=== PATIENT | male | born 1955 | race Caucasian/White ===

== ENCOUNTER 2022-11-06 15:47 | Inpatient (IN) | payer MEDICARE, OTHER ==
[~2022-11-06] VITALS: Ht 170.2 cm; Wt 101.2 kg
--- NOTE | 2022-11-06 16:00 | NUR ---
BIB PA FROM [facility] FOR BILATERAL LEG SWELLING X 5 DAYS, MORE ON THE LEFT. PLACED IN BED, AAOX3, BREATHING UNLABORED SATURATING AT 98%RA, LEFT LOWER LEG SWELLING NOTED.
--- NOTE | 2022-11-06 16:50 | NUR ---
IMPROVEMENT ENGINEER AT BEDSIDE
--- NOTE | 2022-11-06 16:52 | NUR ---
DUPLEX U/S TECH AT BEDSIDE
--- NOTE | 2022-11-06 17:15 | NUR ---
MOVE SHEET SUBMITTED.
[2022-11-06 17:27] LABS: BASOPHILS % (AUTO) 0.5 % (0.0-2.0); EOSINOPHILS % (AUTO) 2.1 % (0.0-6.0); HEMATOCRIT 44 % (39-51); HEMOGLOBIN 14.8 g/dL (13.5-17.5); LYMPHOCYTES # (AUTO) 1.6 K/uL (0.8-4.8); LYMPHOCYTES % (AUTO) 23.2 % (20.0-44.0); MEAN CORPUSCULAR HGB CONC 34 g/dl (31.0-36.0); MEAN CORPUSCULAR VOLUME 91 fL (80-96); MONOCYTES # (AUTO) 0.6 K/uL (0.1-1.30); MONOCYTES % (AUTO) 9.1 % (2.0-12.0); NEUTROPHILS # (AUTO) 4.4 K/uL (1.8-8.9); NEUTROPHILS % (AUTO) 65.1 % (43.0-81.0); PLATELET COUNT (AUTO) 136 K/uL (150-450); RED BLOOD CELL COUNT(AUTO) 4.85 MIL/uL (4.5-6.0); WHITE BLOOD COUNT (AUTO) 6.7 K/uL (4.3-11.0)
--- NOTE | 2022-11-06 17:36 | NUR ---
[facility] CALLED [employer]IO TECHNICIAN PAGED.
[2022-11-06] MEDS ORDERED: ACET-868 PO (18:00)
[2022-11-06] MEDS ORDERED: ATOR40TA PO (18:00)
[2022-11-06] MEDS ORDERED: ASCO-352 PO (18:00)
[2022-11-06] MEDS ORDERED: MULT-447 PO (18:00)
[2022-11-06] MEDS ORDERED: QUET25TA PO (18:00)
[2022-11-06] MEDS ORDERED: BISA10SU11 RC (18:00)
[2022-11-06] MEDS ORDERED: FAMO20TA8 PO (18:00)
[2022-11-06] MEDS ORDERED: SPIR25TA PO (18:00)
[2022-11-06] MEDS ORDERED: DIGO-30 PO (18:00)
[2022-11-06] MEDS ORDERED: RISP0.2515 PO (18:00)
[2022-11-06] MEDS ORDERED: METF-440 PO (18:00)
[2022-11-06] MEDS ORDERED: MAGN400O6 PO (18:00)
[2022-11-06] MEDS ORDERED: NA P133E RC (18:00)
[2022-11-06] MEDS ORDERED: METO25TA3 PO (18:00)
[2022-11-06] MEDS ORDERED: NIFE30TA2 PO (18:00)
[2022-11-06] MEDS ORDERED: INSU100V3 SQ (18:00)
[2022-11-06] MEDS ORDERED: RIVA10TA PO (18:00)
[2022-11-06] MEDS ORDERED: ESCI10TA PO (18:00)
[2022-11-06 18:17] LABS: ALANINE AMINOTRANSFERASE 16 U/L (12-78); ALBUMIN 3.6 g/dL (3.4-5.0); ALKALINE PHOSPHATASE 70 U/L (46-116); ASPARTATE AMINOTRANSFERASE 14 U/L (15-37); BILIRUBIN,DIRECT 0.2 mg/dL (0.0-0.2); CALCIUM, SERUM 9.5 mg/dL (8.5-10.1); CARBON DIOXIDE 29 mmol/L (21-32); CHLORIDE 102 mmol/L (98-107); CREATININE 1.4 mg/dL (0.6-1.3); GLUCOSE 116 mg/dL (74-106); SODIUM SERUM 138 mmol/L (136-145); UREA NITROGEN, BLOOD 24 mg/dL (7-18)
--- NOTE | 2022-11-06 18:55 | NUR ---
SWAB FOR COVID19 SENT TO LAB
[2022-11-06 20:00] VITALS: BP 144/89
--- NOTE | 2022-11-06 20:12 | NUR ---
REPORT GIVEN TO ROSALBA CHAVEZ ROOM 311-1 FOR PRISCILA
--- NOTE | 2022-11-06 21:57 | NUR ---
RN NOTE; RECEIVED PT FROM ER IN RM 311-2 WITH CATRACHITA ASSITED BY TWO PERSONNEL,AAOX2 WITH CONFUSION,TRISTAN WELL ON RM AIR SATTING 98%,NO SIGN SOB/DISTRESS NOTED,NO COMPLAIN OF PAIN/DISCOMFORT AT THIS TIME,IV ACCESS ON LAC 20G INTACT NO BLEEDING NOTED,PT WAS ORIENT THE RM VERBALLY UNDERSTANDING,SAFETY MEASURE IN PLACE,CALL LIGHT WITHIN REACH,WILL CONTINUE TO MONITOR.
[2022-11-06] MEDS ORDERED: BISACODYL SUPP (10 MG) 10 MG/SUPP.RECT SUPP.RECT RC PRN (22:00)
[2022-11-06] MEDS ORDERED: NA PHOS,M-B/NA PHOS,DI-BA 1 EA ENEMA RC PRN (22:00)
[2022-11-06] MEDS ORDERED: HYDROCODONE/APAP 5/325MG TABLET PO PRN (22:00)
[2022-11-06] MEDS ORDERED: Z GUARD REMEDY 4 OZ OINT TP PRN (22:00)
[2022-11-06] MEDS ORDERED: ONDANSETRON HCL/PF 4 MG/2 ML VIAL IVP PRN (22:00)
[2022-11-06] MEDS ORDERED: DEXTROSE 50%-WATER 50 ML DISP.SYRIN IV PRN (22:00)
[2022-11-06] MEDS ORDERED: ACETAMINOPHEN 325 MG TABLET PO PRN (22:00)
[2022-11-06] MEDS: ATORVASTATIN 40 MG TABLET PO SCH (22:47)
[2022-11-06] MEDS: INSULIN REGULAR, HUMAN 100 UNIT/ML 3 ML VIAL SQ PRN (22:56)
[2022-11-06] MEDS: BLOOD SUGAR DIAGNOSTIC 1 EACH STRIP IN SCH (22:57)
[2022-11-07] VITALS: BP 135/83
[2022-11-07 06:29] LABS: CALCIUM, SERUM 9.5 mg/dL (8.5-10.1); CREATININE 1.2 mg/dL (0.6-1.3); MAGNESIUM 1.9 mg/dL (1.8-2.4); PHOSPHORUS 3.5 mg/dL (2.5-4.9); POTASSIUM 3.9 mmol/L (3.5-5.1)
--- NOTE | 2022-11-07 06:31 | NUR ---
RN CLOSING NOTE;328 PATIENT IN BED AAOX1-2 WITH CONFUSION,TRISTAN WELL ON RM AIR SATTING 98%,NO SIGN SOB/DISTRESS NOTED,NO COMPLAIN OF PAIN/DISCOMFORT DURING SHIFT,DUE MEDS GIVEN ORDER,ALL NEEDS ATTENDED,,IV SITE ON RAC 20G,PATENT AND INTACT,SAFETY MEASURE IN PLACE,CALL LIGHT WITHIN REACH,WILL ENDORSED TO NEXT SHIFT.
[2022-11-07 06:35] LABS: BASOPHILS % (AUTO) 0.5 % (0.0-2.0); EOSINOPHILS % (AUTO) 2.4 % (0.0-6.0); HEMATOCRIT 44 % (39-51); HEMOGLOBIN 14.6 g/dL (13.5-17.5); LYMPHOCYTES # (AUTO) 1.9 K/uL (0.8-4.8); LYMPHOCYTES % (AUTO) 23.3 % (20.0-44.0); MEAN CORPUSCULAR HGB CONC 33 g/dl (31.0-36.0); MEAN CORPUSCULAR VOLUME 91 fL (80-96); MONOCYTES # (AUTO) 0.7 K/uL (0.1-1.30); MONOCYTES % (AUTO) 8.6 % (2.0-12.0); NEUTROPHILS # (AUTO) 5.3 K/uL (1.8-8.9); NEUTROPHILS % (AUTO) 65.2 % (43.0-81.0); PLATELET COUNT (AUTO) 138 K/uL (150-450); WHITE BLOOD COUNT (AUTO) 8.1 K/uL (4.3-11.0)
[2022-11-07] MEDS: INSULIN REGULAR, HUMAN 100 UNIT/ML 3 ML VIAL SQ PRN ×4 (06:41→21:58)
[2022-11-07] MEDS: BLOOD SUGAR DIAGNOSTIC 1 EACH STRIP IN SCH ×4 (06:42→21:59)
--- NOTE | 2022-11-07 07:25 | NUR ---
MS RN OPENING NOTES PT RECEIVED IN BED AWAKE, A/O X2. CONFUSED AND FORGETFUL. ABLE TO MAKE NEEDS KNOWN, DENIES PAIN OR ANY DISCOMFORTS AT THIS TIME. ON ROOM AIR, TOLERATING WELL, BREATHING EVEN AND UNLABORED. IV ACCESS ON RAC #20G INTACT, PATENT AND SL. SAFETY PRECAUTIONS IN PLACE: BED IN LOWEST LOCKED POSITION, SIDE RAILS UP X3, BED ALARM ON, CALL LIGHT AND TRAY TABLE WITHIN REACH OF PT. WILL CONTINUE TO MONITOR PT ACCORDINGLY.
[2022-11-07] MEDS: PANTOPRAZOLE 40 MG TABLET.DR PO SCH (07:55)
[2022-11-07 08:00] VITALS: BP 146/77
[2022-11-07] MEDS: SPIRONOLACTONE 25 MG TABLET PO SCH (08:32)
[2022-11-07] MEDS: risperiDONE 1 MG TABLET PO SCH ×2 (08:33→16:45)
[2022-11-07] MEDS: MULTIVIT W/MINERALS 1 TAB TABLET PO SCH (08:34)
[2022-11-07] MEDS: QUETIAPINE FUMARATE 25 MG TABLET PO SCH ×2 (08:34→16:45)
[2022-11-07] MEDS: ASCORBIC ACID 500 MG TABLET PO SCH (08:35)
[2022-11-07] MEDS: ESCITALOPRAM OXALATE (10 MG) 10 MG TABLET PO SCH (08:36)
[2022-11-07] MEDS: DIGOXIN 0.125 MG TABLET PO SCH (08:39)
[2022-11-07] MEDS: METOPROLOL SUCCINATE 25 MG TAB.SR.24H PO SCH (08:39)
[2022-11-07] MEDS: NIFEdipine XL (30MG) 30 MG TAB PO SCH (08:39)
[2022-11-07] MEDS: ENOXAPARIN SODIUM 100 MG/ML DISP.SYRIN SQ SCH ×2 (08:45→21:11)
[2022-11-07 16:00] VITALS: BP 123/85
--- NOTE | 2022-11-07 18:41 | NUR ---
MS RN CLOSING NOTES PT IN BED AWAKE AND RESTING. A/O X2. ABLE TO MAKE NEEDS KNOWN WITH CONFUSION AND FORGETFULNESS. FREQUENT RE-ORIENTATION AND REDIRECTION GIVEN. PT REFUSED TO CHANGE TO HOSPITAL GOWN. ON ROOM AIR, TOLERATING WELL, BREATHING EVEN AND UNLABORED, NO SOB NOTED DURING SHIFT. IV ACCESS ON RAC #20G INTACT, PATENT AND SL. ALL NEEDS AND CARE PROVIDED. SAFETY PRECAUTIONS IN PLACE: BED IN LOWEST LOCKED POSITION, SIDE RAILS UP X2, BED ALARM ON, CALL LIGHT AND TRAY TABLE WITHIN REACH OF PT. WILL ENDORSE PRISCILA TO BUSINESS AND FINANCIAL COUNSEL NURSE.
--- NOTE | 2022-11-07 19:13 | NUR ---
RN OPENING NOTE; RECEIVED PATIENT IN BED AAOX1-2 WITH CONFUSION,TRISTAN WELL ON RM AIR SATTING 97.2%,NO SIGN SOB/DISTRESS NOTED,NO COMPLAIN OF PAIN/DISCOMFORT AT THIS TIME,IV SITE ON LAC 20G,PATENT AND INTACT,SAFETY MEASURE IN PLACE,CALL LIGHT WITHIN REACH,WILL CONTINUE TO MONITOR.
[2022-11-07 20:00] VITALS: BP 137/74
[2022-11-07] MEDS: ATORVASTATIN 40 MG TABLET PO SCH (21:10)
--- NOTE | 2022-11-07 22:30 | NUR ---
RN opening notes Received Pt from KATHY Brock. Pt is resting in bed comfortably. Pt is alert and orientedX2. On room air. No SOB. No S/S of distress noted. VS is stable. IV site at RAC# 20 is clean, intact and SL. Safety precaution is maintained. Bed at low position, brakes locked, hob elevated, side rails upX3, bed alarm is on, and call light is within reach. will continue to monitor.
[2022-11-08 05:52] LABS: BASOPHILS % (AUTO) 0.7 % (0.0-2.0); EOSINOPHILS % (AUTO) 3.4 % (0.0-6.0); HEMATOCRIT 43 % (39-51); HEMOGLOBIN 14.3 g/dL (13.5-17.5); LYMPHOCYTES # (AUTO) 2.1 K/uL (0.8-4.8); MEAN CORPUSCULAR HGB CONC 33 g/dl (31.0-36.0); MEAN CORPUSCULAR VOLUME 92 fL (80-96); MONOCYTES # (AUTO) 0.6 K/uL (0.1-1.30); MONOCYTES % (AUTO) 8.3 % (2.0-12.0); NEUTROPHILS # (AUTO) 3.7 K/uL (1.8-8.9); NEUTROPHILS % (AUTO) 55.6 % (43.0-81.0); PLATELET COUNT (AUTO) 129 K/uL (150-450); RED BLOOD CELL COUNT(AUTO) 4.62 MIL/uL (4.5-6.0); WHITE BLOOD COUNT (AUTO) 6.7 K/uL (4.3-11.0)
[2022-11-08 06:07] LABS: CALCIUM, SERUM 9.1 mg/dL (8.5-10.1); CREATININE 1.2 mg/dL (0.6-1.3); MAGNESIUM 2.3 mg/dL (1.8-2.4); PHOSPHORUS 3.8 mg/dL (2.5-4.9); POTASSIUM 3.8 mmol/L (3.5-5.1)
[2022-11-08] MEDS: BLOOD SUGAR DIAGNOSTIC 1 EACH STRIP IN SCH ×4 (06:42→21:38)
--- NOTE | 2022-11-08 06:45 | NUR ---
MS RN CLOSING NOTES PATIENT RESTING IN BED COMFORTABLY. PT IS ALERT AND ORIENTED X 2. ON ROOM AIR, NO S/S OF RESPIRATORY DISTRESS. V/S STABLE. IV SITE AT RAC #20G, INTACT AND PATENT ON SL. KEPT CLEAN, DRY AND COMFORTABLE. SAFETY MEASURES MAINTAINED WITH BED ON LOWEST POSITION AND LOCK. BED ALARM ON. CALL LIGHT AND TABLE WITHIN REACH. SIDE RAILS UP X2. WILL ENDORSE TO THE NEXT SHIFT FOR THE CONTINUITY OF CARE.
[2022-11-08] MEDS: INSULIN REGULAR, HUMAN 100 UNIT/ML 3 ML VIAL SQ PRN ×4 (06:47→21:45)
--- NOTE | 2022-11-08 07:44 | NUR ---
RN OPENING NOTES: RECEIVED PT ASLEEP, EASILY ROUSED, A/OX1-2 WITH PERIODS OF CONFUSION. ON ROOM AIR, TRISTAN WELL, NO S/S OF SOB, V/S STABLE. IV SITE AT RAC #20G, SL, INTACT AND PATENT. DENIES PAIN AT THIS TIME. SAFETY MEASURES MAINTAINED WITH BED ON LOWEST POSITION AND LOCK. BED ALARM ON. CALL LIGHT AND TABLE WITHIN REACH. SIDE RAILS UP X2; WILL CONT WITH PLAN OF CARE DURING SHIFT.
[2022-11-08 08:00] VITALS: BP 132/86
[2022-11-08] MEDS: DIGOXIN 0.125 MG TABLET PO SCH (08:23)
[2022-11-08] MEDS: risperiDONE 1 MG TABLET PO SCH ×2 (08:23→16:05)
[2022-11-08] MEDS: ASCORBIC ACID 500 MG TABLET PO SCH (08:23)
[2022-11-08] MEDS: MULTIVIT W/MINERALS 1 TAB TABLET PO SCH (08:23)
[2022-11-08] MEDS: ESCITALOPRAM OXALATE (10 MG) 10 MG TABLET PO SCH (08:23)
[2022-11-08] MEDS: NIFEdipine XL (30MG) 30 MG TAB PO SCH (08:24)
[2022-11-08] MEDS: PANTOPRAZOLE 40 MG TABLET.DR PO SCH (08:24)
[2022-11-08] MEDS: QUETIAPINE FUMARATE 25 MG TABLET PO SCH ×2 (08:24→16:04)
[2022-11-08] MEDS: SPIRONOLACTONE 25 MG TABLET PO SCH (08:24)
[2022-11-08] MEDS: METOPROLOL SUCCINATE 25 MG TAB.SR.24H PO SCH (08:24)
[2022-11-08] MEDS: ENOXAPARIN SODIUM 100 MG/ML DISP.SYRIN SQ SCH ×2 (08:26→21:34)
[2022-11-08 16:00] VITALS: BP 126/72
--- NOTE | 2022-11-08 18:14 | NUR ---
RN CLOSING NOTES: PT IS ASLEEP, EASILY ROUSED, A/OX1-2 WITH PERIODS OF CONFUSION. ON ROOM AIR, TOLERATING WELL, NO S/S OF SOB, V/S STABLE. IV SITE AT RAC #20G, SL, INTACT AND PATENT. DENIES PAIN AT THIS TIME. MEDS, GIVEN, NEEDS ATTENDED. KEPT PT CLEAN, DRY AND COMFORTABLE. SAFETY MEASURES MAINTAINED WITH BED ON LOWEST POSITION AND LOCK. BED ALARM ON, CALL LIGHT AND TABLE WITHIN REACH, SIDE RAILS UP X2; WILL ENDORSE TO PM SHIFT.
--- NOTE | 2022-11-08 19:29 | NUR ---
MS JOSE INITIAL NOTES Received report from am nurse and checked the patient he's on bed lying awake and alert oriented to his name and place . Denies any pain or any discomfort at this time. Able to ambulate without help.. Re -oriented where he at and how to used the call light system . kept him warm and comfortable at all times. Bed in low and lock in position with side rails x2 up. will continue monitoring.
[2022-11-08 20:00] VITALS: BP 113/72
[2022-11-08] MEDS: ATORVASTATIN 40 MG TABLET PO SCH (21:33)
--- NOTE | 2022-11-08 22:08 | NUR ---
MS JOSE NOTES BLOOD SUGAR CHECKED DONE 155, INSULIN 2 UNITS GIVEN NAGI SQ ORDERED. ROUTINE MEDS GIVEN AND SNACKS ALSO SERVED. PT TOLERATED WELL, KEPT HIM WARM AND COMFORTABLE AT ALL TIMES. WILL CONTINUE MONITORING. PLACE CALL LIGHT AT REACH.
[2022-11-09] MEDS: BLOOD SUGAR DIAGNOSTIC 1 EACH STRIP IN SCH ×2 (06:04→11:42)
[2022-11-09 06:18] LABS: BASOPHILS % (AUTO) 0.5 % (0.0-2.0); EOSINOPHILS % (AUTO) 3.7 % (0.0-6.0); HEMATOCRIT 43 % (39-51); HEMOGLOBIN 14.1 g/dL (13.5-17.5); LYMPHOCYTES # (AUTO) 2.3 K/uL (0.8-4.8); LYMPHOCYTES % (AUTO) 31.2 % (20.0-44.0); MEAN CORPUSCULAR HGB CONC 33 g/dl (31.0-36.0); MEAN CORPUSCULAR VOLUME 92 fL (80-96); MONOCYTES # (AUTO) 0.6 K/uL (0.1-1.30); MONOCYTES % (AUTO) 7.5 % (2.0-12.0); NEUTROPHILS # (AUTO) 4.2 K/uL (1.8-8.9); NEUTROPHILS % (AUTO) 57.1 % (43.0-81.0); PLATELET COUNT (AUTO) 135 K/uL (150-450); RED BLOOD CELL COUNT(AUTO) 4.63 MIL/uL (4.5-6.0); WHITE BLOOD COUNT (AUTO) 7.3 K/uL (4.3-11.0)
[2022-11-09 07:00] VITALS: BP 143/98
--- NOTE | 2022-11-09 07:18 | NUR ---
ms tile decorator closing notes pt back to rest after morning care done. Stable throughout the night and slept well. all due meds given and all needs met. blood sugar 109, no coverages given as ordered. no signs of hypo glycemia noted . Bed in low and lock in position with side rails x2 up . Endorse to am nurse for continuity of care. place call light at reach.
--- NOTE | 2022-11-09 07:31 | NUR ---
MS RN OPENING NOTE PT AWAKE AND RESTING IN BED. A/OX2-3 AND ABLE TO MAKE NEEDS KNOWN. ON ROOM AIR WITH NO SIGNS OF RESPIRATORY DISTRESS NOTED. NO COMPLAINTS OF CARDIAC DISTRESS. IV ACCESS TO RIGHT AC#20 SL. PATENT AND INTACT. SAFETY PRECAUTIONS IN USE WITH BED IN LOWEST LOCKED POSITION, SIDE RAILS UP X2, TRAY AND CALL LIGHT WITHIN REACH. ALL NEEDS MET AT THIS TIME. WILL CONTINUE TO MONITOR.
[2022-11-09 07:38] LABS: CALCIUM, SERUM 9.3 mg/dL (8.5-10.1); CREATININE 1.1 mg/dL (0.6-1.3); MAGNESIUM 2.2 mg/dL (1.8-2.4); POTASSIUM 4.1 mmol/L (3.5-5.1)
[2022-11-09] MEDS: MULTIVIT W/MINERALS 1 TAB TABLET PO SCH (08:07)
[2022-11-09] MEDS: ESCITALOPRAM OXALATE (10 MG) 10 MG TABLET PO SCH (08:07)
[2022-11-09] MEDS: ASCORBIC ACID 500 MG TABLET PO SCH (08:07)
[2022-11-09] MEDS: ENOXAPARIN SODIUM 100 MG/ML DISP.SYRIN SQ SCH (08:07)
[2022-11-09] MEDS: PANTOPRAZOLE 40 MG TABLET.DR PO SCH (08:08)
[2022-11-09] MEDS: risperiDONE 1 MG TABLET PO SCH (08:08)
[2022-11-09] MEDS: QUETIAPINE FUMARATE 25 MG TABLET PO SCH (08:08)
[2022-11-09] MEDS: NIFEdipine XL (30MG) 30 MG TAB PO SCH (08:09)
[2022-11-09] MEDS: SPIRONOLACTONE 25 MG TABLET PO SCH (08:09)
[2022-11-09] MEDS: DIGOXIN 0.125 MG TABLET PO SCH (08:13)
[2022-11-09 08:14] VITALS: BP 143/98
[2022-11-09] MEDS: METOPROLOL SUCCINATE 25 MG TAB.SR.24H PO SCH (08:14)
[2022-11-09] MEDS: INSULIN REGULAR, HUMAN 100 UNIT/ML 3 ML VIAL SQ PRN (11:46)
[2022-11-09] MEDS ORDERED: ENOXAPARIN SODIUM 100 MG/ML DISP.SYRIN SQ SCH (21:00)
== END 2022-11-09 13:40 | DRG 299 ==
LOC: ER 15:49 → TELE 21:31 → MED 11-07 06:59
PROVIDERS: ADMIT Nurse Practitioner Family; ATTEND Nurse Practitioner Acute Care
DX: I82.412 Acute embolism and thrombosis of left femoral vein (principal); G93.41 Metabolic encephalopathy; N17.0 Acute kidney failure with tubular necrosis; D68.59 Other primary thrombophilia; I82.432 Acute embolism and thrombosis of left popliteal vein; E11.9 Type 2 diabetes mellitus without complications; Z20.822 Contact with and (suspected) exposure to COVID-19; J44.9 Chronic obstructive pulmonary disease, unspecified; Z79.01 Long term (current) use of anticoagulants; F25.9 Schizoaffective disorder, unspecified; I11.0 Hypertensive heart disease with heart failure; I50.9 Heart failure, unspecified; R13.10 Dysphagia, unspecified; M62.50 Muscle wasting and atrophy, not elsewhere classified, unspecified site; Z88.8 Allergy status to other drugs, medicaments and biological substances; Z91.041 Radiographic dye allergy status; Z79.84 Long term (current) use of oral hypoglycemic drugs; Z79.4 Long term (current) use of insulin; Z79.899 Other long term (current) drug therapy; E78.5 Hyperlipidemia, unspecified; I48.91 Unspecified atrial fibrillation
CPT/HCPCS: 36415; 71045-TC; 80048-TC; 80076-TC; 82962-TC; 83735-TC; 83880; 84100-TC; 84484-TC; 85025-TC; 85730-TC; 87081-TC; 93970-TC; C9803; G0378; J1650; J1815

== ENCOUNTER 2023-06-06 16:05 | Inpatient (IN) | payer MEDICARE, OTHER ==
[~2023-06-06] VITALS: Ht 182.9 cm; Wt 95.3 kg
[~2023-06-06 16:05] MED LIST: ACET-868 PO; ASCO-352 PO; ATOR40TA PO; BISA10SU11 RC; DIGO-30 PO; ESCI10TA PO; FAMO20TA8 PO; INSU100V3 SQ; MAGN400O6 PO; METF-440 PO; METO25TA3 PO; MULT-447 PO; NA P133E RC; NIFE30TA2 PO; QUET25TA PO; RISP0.2515 PO; RIVA10TA PO; SPIR25TA PO
[2023-06-06] MEDS ORDERED: ONDA4TAB5 PO (17:16)
[2023-06-06] MEDS ORDERED: PETR113O TP (17:16)
[2023-06-06 17:29] LABS: BASOPHILS # (AUTO) 0.1 K/uL (0.0-0.2); BASOPHILS % (AUTO) 1.4 % (0.0-2.0); EOSINOPHILS # (AUTO) 0.3 K/uL (0.0-0.7); EOSINOPHILS % (AUTO) 4.1 % (0.0-6.0); HEMATOCRIT 45 % (39-51); HEMOGLOBIN 15.2 g/dL (13.5-17.5); LYMPHOCYTES # (AUTO) 1.7 K/uL (0.8-4.8); LYMPHOCYTES % (AUTO) 20.7 % (20.0-44.0); MEAN CORPUSCULAR HEMOGLOBIN 31 PG (26.0-33.0); MEAN CORPUSCULAR HGB CONC 34 g/dl (31.0-36.0); MEAN CORPUSCULAR VOLUME 93 fL (80-96); MONOCYTES # (AUTO) 0.5 K/uL (0.1-1.30); MONOCYTES % (AUTO) 5.7 % (2.0-12.0); NEUTROPHILS # (AUTO) 5.5 K/uL (1.8-8.9); NEUTROPHILS % (AUTO) 68.1 % (43.0-81.0); PLATELET COUNT (AUTO) 144 K/uL (150-450); RED BLOOD CELL COUNT(AUTO) 4.85 MIL/uL (4.5-6.0); RED CELL DISTRIBUTION WIDTH 14.5 % (11.5-15.0); WHITE BLOOD COUNT (AUTO) 8.1 K/uL (4.3-11.0)
[2023-06-06 17:38] LABS: CALCIUM, SERUM 9.5 mg/dL (8.5-10.1); CARBON DIOXIDE 24 mmol/L (21-32); CHLORIDE 106 mmol/L (98-107); CREATININE 1.1 mg/dL (0.6-1.3); GLUCOSE 156 mg/dL (74-106); POTASSIUM 4.1 mmol/L (3.5-5.1); SODIUM SERUM 142 mmol/L (136-145); UREA NITROGEN, BLOOD 24 mg/dL (7-18)
[2023-06-06 17:45] LABS: ALANINE AMINOTRANSFERASE 16 U/L (12-78); ALBUMIN 3.8 g/dL (3.4-5.0); ALKALINE PHOSPHATASE 72 U/L (46-116); ASPARTATE AMINOTRANSFERASE 5 U/L (15-37); BILIRUBIN,DIRECT 0.2 mg/dL (0.0-0.2); BILIRUBIN,TOTAL 0.9 mg/dL (0.2-1.0); LIPASE 111 U/L (73-393); MAGNESIUM 1.7 mg/dL (1.8-2.4); TOTAL PROTEIN, SERUM 7.3 g/dL (6.4-8.2)
[2023-06-06] MEDS ORDERED: BISACODYL SUPP (10 MG) 10 MG/SUPP.RECT SUPP.RECT RC PRN (18:30)
[2023-06-06] MEDS ORDERED: MAG HYDROX/AL HYDROX/SIMETH 30 ML UDC PO PRN (18:30)
[2023-06-06] MEDS ORDERED: NA PHOS,M-B/NA PHOS,DI-BA 1 EA ENEMA RC PRN (18:30)
[2023-06-06] MEDS ORDERED: ACETAMINOPHEN 325 MG TABLET PO PRN (18:30)
[2023-06-06] MEDS ORDERED: ONDANSETRON HCL/PF 4 MG/2 ML VIAL IVP PRN (18:30)
[2023-06-06] MEDS ORDERED: Z GUARD REMEDY 4 OZ OINT TP PRN (18:30)
[2023-06-06] MEDS ORDERED: DEXTROSE 50%-WATER 50 ML DISP.SYRIN IV PRN (18:30)
[2023-06-06] MEDS ORDERED: MAGNESIUM HYDROXIDE 30 ML UDC PO PRN (18:30)
[2023-06-06 18:56] LABS: APPEARANCE,URINE SLIGHTLY CLOUDY (CLEAR); BILIRUBIN,URINE NEGATIVE (NEGATIVE); BLOOD, URINE NEGATIVE Ery/uL (NEGATIVE); COLOR,URINE YELLOW (YELLOW); KETONES,URINE NEGATIVE (NEGATIVE); LEUKOCYTE ESTERASE ,URINE NEGATIVE (NEGATIVE); NITRITE, URINE NEGATIVE (NEGATIVE); PH,URINE 6.5 (5.0-8.0); PROTEIN,URINE NEGATIVE (NEGATIVE); UGLUCOSE NEGATIVE (NEGATIVE)
[2023-06-06 19:10] LABS: ADD URINE CULTURE NO; BACTERIA,URINE None seen /HPF (None Seen); RBC,URINE NONE SEEN /HPF (0-2); WBC,URINE NONE SEEN /HPF (0-3)
[2023-06-06 19:19] VITALS: O2SAT 97
[2023-06-06 20:30] VITALS: BP 152/91; TEMP 97.4; O2SAT 94
[2023-06-07] MEDS: BLOOD SUGAR DIAGNOSTIC 1 EACH STRIP VI SCH ×5 (00:16→22:04)
[2023-06-07] MEDS: IV NS 0.9% 1,000 ML IV PRN ×2 (03:52→16:08)
[2023-06-07 07:00] VITALS: BP 156/99; TEMP 97.8; O2SAT 97
[2023-06-07] MEDS: *INSULIN REGULAR(HUMULIN R)HUM 100 UNIT/ML VIAL SQ PRN ×2 (07:12→22:12)
[2023-06-07] MEDS ORDERED: CLONIDINE HCL 0.1 MG TABLET PO PRN (07:30)
[2023-06-07 07:41] LABS: BASOPHILS % (AUTO) 0.5 % (0.0-2.0); EOSINOPHILS # (AUTO) 0.3 K/uL (0.0-0.7); EOSINOPHILS % (AUTO) 3.3 % (0.0-6.0); HEMATOCRIT 47 % (39-51); HEMOGLOBIN 15.7 g/dL (13.5-17.5); LYMPHOCYTES # (AUTO) 1.9 K/uL (0.8-4.8); LYMPHOCYTES % (AUTO) 21.5 % (20.0-44.0); MEAN CORPUSCULAR HEMOGLOBIN 31 PG (26.0-33.0); MEAN CORPUSCULAR HGB CONC 34 g/dl (31.0-36.0); MEAN CORPUSCULAR VOLUME 93 fL (80-96); MONOCYTES # (AUTO) 0.6 K/uL (0.1-1.30); MONOCYTES % (AUTO) 6.1 % (2.0-12.0); NEUTROPHILS # (AUTO) 6.2 K/uL (1.8-8.9); NEUTROPHILS % (AUTO) 68.6 % (43.0-81.0); PLATELET COUNT (AUTO) 134 K/uL (150-450); RED BLOOD CELL COUNT(AUTO) 5.02 MIL/uL (4.5-6.0); RED CELL DISTRIBUTION WIDTH 14.9 % (11.5-15.0)
[2023-06-07] MEDS: FAMOTIDINE (20 MG) 20 MG TABLET PO SCH (07:48)
[2023-06-07 08:01] LABS: CALCIUM, SERUM 9.4 mg/dL (8.5-10.1); MAGNESIUM 1.9 mg/dL (1.8-2.4); PHOSPHORUS 2.9 mg/dL (2.5-4.9); POTASSIUM 3.6 mmol/L (3.5-5.1)
[2023-06-07] MEDS ORDERED: DIGOXIN 0.125 MG TABLET PO SCH (09:00)
[2023-06-07] MEDS: METOPROLOL SUCCINATE 25 MG TAB.SR.24H PO SCH (09:17)
[2023-06-07] MEDS: risperiDONE 1 MG TABLET PO SCH ×2 (09:17→16:10)
[2023-06-07] MEDS: NIFEdipine XL (30MG) 30 MG TAB PO SCH (09:18)
[2023-06-07] MEDS: QUETIAPINE FUMARATE 25 MG TABLET PO SCH ×2 (09:18→16:10)
[2023-06-07] MEDS: ESCITALOPRAM OXALATE (10 MG) 10 MG TABLET PO SCH (09:18)
[2023-06-07] MEDS: RIVAROXABAN 10 MG TABLET PO SCH (10:01)
[2023-06-07] MEDS: DIGOXIN 0.125 MG TABLET PO SCH (12:33)
[2023-06-07 16:00] VITALS: BP 148/102; TEMP 98; O2SAT 97
[2023-06-07] MEDS: INSULIN REGULAR, HUMAN 100 UNIT/ML 3 ML VIAL SQ PRN (17:36)
[2023-06-07 20:00] VITALS: BP 110/72; TEMP 97.1; O2SAT 95
[2023-06-07 21:14] VITALS: BP 110/72; TEMP 97.1; O2SAT 94
[2023-06-08 05:54] LABS: BASOPHILS # (AUTO) 0.1 K/uL (0.0-0.2); BASOPHILS % (AUTO) 0.6 % (0.0-2.0); EOSINOPHILS # (AUTO) 0.2 K/uL (0.0-0.7); EOSINOPHILS % (AUTO) 2.8 % (0.0-6.0); HEMATOCRIT 44 % (39-51); HEMOGLOBIN 15.2 g/dL (13.5-17.5); LYMPHOCYTES % (AUTO) 25.1 % (20.0-44.0); MEAN CORPUSCULAR HEMOGLOBIN 32 PG (26.0-33.0); MEAN CORPUSCULAR HGB CONC 34 g/dl (31.0-36.0); MEAN CORPUSCULAR VOLUME 92 fL (80-96); MONOCYTES # (AUTO) 0.6 K/uL (0.1-1.30); MONOCYTES % (AUTO) 7.9 % (2.0-12.0); NEUTROPHILS # (AUTO) 5.1 K/uL (1.8-8.9); NEUTROPHILS % (AUTO) 63.6 % (43.0-81.0); PLATELET COUNT (AUTO) 145 K/uL (150-450); RED BLOOD CELL COUNT(AUTO) 4.79 MIL/uL (4.5-6.0); RED CELL DISTRIBUTION WIDTH 14.5 % (11.5-15.0)
[2023-06-08 06:26] LABS: CALCIUM, SERUM 9.1 mg/dL (8.5-10.1); CREATININE 1.2 mg/dL (0.6-1.3); POTASSIUM 3.8 mmol/L (3.5-5.1)
[2023-06-08 07:00] VITALS: BP 144/95; TEMP 98.6; O2SAT 97
[2023-06-08] MEDS: BLOOD SUGAR DIAGNOSTIC 1 EACH STRIP VI SCH ×4 (07:39→22:50)
[2023-06-08] MEDS: INSULIN REGULAR, HUMAN 100 UNIT/ML 3 ML VIAL SQ PRN ×3 (07:40→22:55)
[2023-06-08] MEDS: IV NS 0.9% 1,000 ML IV PRN (07:52)
[2023-06-08] MEDS: FAMOTIDINE (20 MG) 20 MG TABLET PO SCH (08:10)
[2023-06-08] MEDS: QUETIAPINE FUMARATE 25 MG TABLET PO SCH ×2 (08:10→16:57)
[2023-06-08] MEDS: RIVAROXABAN 10 MG TABLET PO SCH (08:11)
[2023-06-08] MEDS: ESCITALOPRAM OXALATE (10 MG) 10 MG TABLET PO SCH (08:12)
[2023-06-08] MEDS: risperiDONE 1 MG TABLET PO SCH ×2 (08:12→16:57)
[2023-06-08] MEDS: METOPROLOL SUCCINATE 25 MG TAB.SR.24H PO SCH (08:40)
[2023-06-08] MEDS: NIFEdipine XL (30MG) 30 MG TAB PO SCH (08:41)
[2023-06-08] MEDS: DIGOXIN 0.125 MG TABLET PO SCH (12:50)
[2023-06-08 16:00] VITALS: BP 152/100; TEMP 98.6; O2SAT 96
[2023-06-08 20:49] VITALS: BP 123/71; TEMP 98.6; O2SAT 95
[2023-06-08] MEDS: *INSULIN REGULAR(HUMULIN R)HUM 100 UNIT/ML VIAL SQ PRN (22:50)
[2023-06-09] MEDS: BLOOD SUGAR DIAGNOSTIC 1 EACH STRIP VI SCH ×2 (06:37→12:00)
[2023-06-09] MEDS: INSULIN REGULAR, HUMAN 100 UNIT/ML 3 ML VIAL SQ PRN (06:38)
[2023-06-09] MEDS: FAMOTIDINE (20 MG) 20 MG TABLET PO SCH ×2 (07:30→09:35)
[2023-06-09 08:00] VITALS: BP 115/116; TEMP 97; O2SAT 98
[2023-06-09 09:00] VITALS: BP 115/116
[2023-06-09] MEDS: ESCITALOPRAM OXALATE (10 MG) 10 MG TABLET PO SCH ×2 (09:00→09:23)
[2023-06-09] MEDS: NIFEdipine XL (30MG) 30 MG TAB PO SCH ×2 (09:00→09:21)
[2023-06-09] MEDS: RIVAROXABAN 10 MG TABLET PO SCH ×2 (09:00→09:26)
[2023-06-09] MEDS: QUETIAPINE FUMARATE 25 MG TABLET PO SCH ×2 (09:00→09:20)
[2023-06-09] MEDS: risperiDONE 1 MG TABLET PO SCH ×2 (09:00→09:20)
[2023-06-09] MEDS: METOPROLOL SUCCINATE 25 MG TAB.SR.24H PO SCH ×2 (09:00→09:21)
== END 2023-06-09 13:30 | DRG 640 ==
LOC: ER 16:17 → MED 19:52
PROVIDERS: ADMIT Internal Medicine; ATTEND Internal Medicine
DX: E86.0 Dehydration (principal); G93.41 Metabolic encephalopathy; N17.0 Acute kidney failure with tubular necrosis; R62.7 Adult failure to thrive; I11.0 Hypertensive heart disease with heart failure; I50.9 Heart failure, unspecified; J44.9 Chronic obstructive pulmonary disease, unspecified; E87.20 Acidosis, unspecified; E83.42 Hypomagnesemia; I48.91 Unspecified atrial fibrillation; E11.9 Type 2 diabetes mellitus without complications; Z79.01 Long term (current) use of anticoagulants; Z79.4 Long term (current) use of insulin; Z79.84 Long term (current) use of oral hypoglycemic drugs; Z79.899 Other long term (current) drug therapy; Z88.8 Allergy status to other drugs, medicaments and biological substances
CPT/HCPCS: 36415; 70450-TC; 71045-TC; 80048-TC; 80076-TC; 80162-TC; 81001; 82962-TC; 83690-TC; 83735-TC; 84100-TC; 84484-TC; 85025-TC; 87081-TC; 87086-TC; A4223; G0378; J1815; J7030; J7042